=== PATIENT | male | born 1935 | race Caucasian/White ===

== ENCOUNTER 2020-07-16 12:54 | Inpatient (IN) | payer OTHER ==
[~2020-07-16] VITALS: Ht 165.1 cm; Wt 84.8 kg
--- NOTE | 2020-07-16 13:35 | NUR ---
PACIENTE LLEGA A JERMAINE DE EMERGENCIAS POR DEBILIDAD GENERAL AL MOMENTO DEL TRIAGE PACIENTE SE ENCUENTRA CON BP BAJO Y NIVEL DE SPO2 EN 70 DE MANERA INMEDIATA SE REALIZA EKG, DXT, Y SE PRESENTA RONNY A MEDICO dR. [place] PARA EVALUACION, PACIENTE ES UBICADO EN AREA DE OBSERVACION CAMA #[id number].
--- NOTE | 2020-07-16 13:36 | NUR ---
ANDERSON NOTIFICA ABGS A PEROSNAL DE TERAPIA RESPIRATORIA .
[2020-07-16] MEDS ORDERED: PRAVASTATIN SOD40 MG PO (13:43)
[2020-07-16] MEDS ORDERED: NAMENDA5 MG PO (13:43)
[2020-07-16] MEDS ORDERED: VERELAN PM100 MG PO (13:44)
[2020-07-16] MEDS ORDERED: NIFEDIPINE20 MG PO (13:44)
--- NOTE | 2020-07-16 14:49 | NUR ---
PACIENTE ALERTA Y ORIENTADO EN TIEMPO LUGAR Y PERSONA. SE ORIENTA SOBRE TRATAMIENTO ORDENADO POR DR. SCHREIBER, EL MISMO VERBALIZA ENTENDER. WILLOW BOWEN LUIS F MUESTRAS ORDENADAS Y COLOCA VENOPUNCION EN L+ Y R+ PATENTES CHILO DE ERITEMA Y EDEMA. SE CONECTA 0.9 NSS 1000ML A 100ML/HR Y CARDICEM 100MG/100ML A 3ML/HR, SE ADMINISTRAN MEDICAMENTOS ORDENADOS HACIENDO USO DE MEDIDAS ASEPTICAS CORRESPONDIENTES. PACIENTE CONECTADO A MONITOR CARDIACO Y OXIMETRIA DE PULSO. AL MOMENTO CON VENTURY MASK AL 50%. PACIENTE CON BUEN PATRON RESPIRATORIO Y PIEL TIBIA AL TACTO. PTE EN COMPANIA DE FAMILIAR. SE MANTIENE EN OBSERVACION POR CAMBIOS SIGNIFICATIVOS.
== END 2020-07-17 22:00 | disposition expired | DRG 208 ==
LOC: ER 12:54 → SEC-K 19:40 → ICU-2 19:40
PROVIDERS: ADMIT Internal Medicine; ATTEND Internal Medicine
PROC: 3E0F7GC Introduction of Other Therapeutic Substance into Respiratory Tract, Via Natural or Artificial Opening (ICD-10-PCS; 2020-07-16)
PROC: 4A033R1 Measurement of Arterial Saturation, Peripheral, Percutaneous Approach (ICD-10-PCS; 2020-07-16)
PROC: 5A1945Z Respiratory Ventilation, 24-96 Consecutive Hours (ICD-10-PCS; principal; 2020-07-17)
PROC: 8E0ZXY6 Isolation (ICD-10-PCS; 2020-07-17)
PROC: BB24ZZZ Computerized Tomography (CT Scan) of Bilateral Lungs (ICD-10-PCS; 2020-07-17)
PROC: 0BH17EZ Insertion of Endotracheal Airway into Trachea, Via Natural or Artificial Opening (ICD-10-PCS; 2020-07-17)
DX: U07.1 COVID-19 (principal); J96.01 Acute respiratory failure with hypoxia; I11.0 Hypertensive heart disease with heart failure; I50.9 Heart failure, unspecified; I48.0 Paroxysmal atrial fibrillation